=== PATIENT | male | born 1970 | race Caucasian/White ===

== ENCOUNTER 2024-09-07 12:40 | Emergency (ER) | payer BC ==
[~2024-09-07] VITALS: Ht 185.4 cm; Wt 138.3 kg
[2024-09-07 12:56] VITALS: BP 162/94; PULSE 79; RESP 18; O2SAT 97
[2024-09-07 13:51] VITALS: TEMP 97.8
== END 2024-09-07 13:52 | disposition home or self-care (01) ==
LOC: ER 12:40
DX: I80.01 Phlebitis and thrombophlebitis of superficial vessels of right lower extremity (principal); Z72.0 Tobacco use
CPT/HCPCS: 93971; 99284